=== PATIENT | female | born 1995 | race Caucasian/White ===

== ENCOUNTER 2016-12-01 21:16 | Emergency (ER) | payer OTHER ==
[~2016-12-01] VITALS: Ht 167.6 cm; Wt 75.2 kg
[2016-12-01 21:55] LABS: HEMATOCRIT 33.4 % (36.0-46.0); MCH 28.4 PG (29.0-34.0); MCHC 33.5 G/DL (30.0-36.0); MCV 84.8 FL (83-99); MEAN PLAT.VOLUME 10.4 uM^3 (9.5-12.4); PLATELET COUNT 301 K/uL (156-360); RBC DIS.WIDTH-CV 13.2 % (11.8-14.6); RBC DIS.WIDTH-SD 40.9 % (39-53); RED BLOOD COUNT 3.94 M/uL (3.80-5.20); WHITE BLOOD COUNT 13.3 K/uL (4.1-10.2)
[2016-12-01 22:02] LABS: CHLORIDE 104 mEq/L (99-109); POTASSIUM 3.2 mEq/L (3.7-5.4); SODIUM 137 mEq/L (136-147)
[2016-12-01 22:04] LABS: GLUCOSE 78 mg/dL (70-99)
[2016-12-01 22:06] LABS: ANION GAP 16 MEQ/L (2-14); TOTAL BILIRUBIN 0.3 mg/dL (0.0-1.0)
[2016-12-01 22:08] LABS: ALKALINE PHOSPHATASE 76 IU/L (3-129); GFR ESTIMATE (CALCULATED) > 59 mL/min/
[2016-12-01 22:09] LABS: UREA NITROGEN (BUN) 5 mg/dL (9-23)
[2016-12-02 00:59] LABS: ADD MIUA? YES; BILIRUBIN NEGATIVE; BLOOD SMALL; COLOR YELLOW ((YELLOW)); GLUCOSE (STRIP) NEGATIVE; KETONES 20; LEUKOCYTES MODERATE; NITRITE NEGATIVE; PROTEIN (STRIP) NEGATIVE; UROBILINOGEN 0.2 MG/DL (0.2-1.0)
[2016-12-02 01:44] LABS: BACTERIA RARE /HPF; EPITHELIAL CELLS 1+ /HPF; MUCUS TRACE /LPF; RED BLOOD CELLS 0-5 /HPF (0-5); UCUL ADDED? YES
[2016-12-02] MEDS ORDERED: MACROBID100 MG PO (02:08)
[2016-12-02 02:20] VITALS: BP 108/60
== END 2016-12-02 02:24 | disposition home or self-care (01) ==
LOC: EME 21:16
PROVIDERS: Physician Assistant
DX: O26.892 Other specified pregnancy related conditions, second trimester (principal); R07.9 Chest pain, unspecified; R06.00 Dyspnea, unspecified; O23.42 Unspecified infection of urinary tract in pregnancy, second trimester; Z3A.28 28 weeks gestation of pregnancy
CPT/HCPCS: 71010; 80053; 81003; 85027; 85379; 87086; 93005; 93970; 99281; 99284

== ENCOUNTER 2017-02-25 16:15 | Outpatient (CLI) | payer OTHER ==
[~2017-02-25 16:15] MED LIST: MACROBID100 MG PO
[2017-02-25 16:30] VITALS: BP 121/74
== END 2017-02-25 17:15 | disposition home or self-care (01) ==
LOC: LDRP-OP → 2WEST 16:17 → LDRP-OP 03-30 13:13
DX: O36.8130 Decreased fetal movements, third trimester, not applicable or unspecified (principal); Z3A.39 39 weeks gestation of pregnancy
CPT/HCPCS: 59025; G0378

== ENCOUNTER 2017-03-07 22:11 | Inpatient (IN) | payer OTHER ==
[~2017-03-07] VITALS: Ht 167.6 cm; Wt 87.0 kg
[2017-03-07 22:30] VITALS: BP 112/55
[2017-03-07 23:07] LABS: BASOPHIL (%) 0.1 % (0-1); EOSINOPHIL (%) 0.1 % (0-5); HEMATOCRIT 36.6 % (36.0-46.0); IMMATURE GRANULOCYTE (%) 1.2 % (0.0-0.7); LYMPHOCYTE (%) 4.4 % (15-42); LYMPHOCYTE COUNT 0.6 K/uL (1.0-2.8); MCH 27.3 PG (29.0-34.0); MCHC 32.8 G/DL (30.0-36.0); MCV 83.2 FL (83-99); MONOCYTE (%) 3.9 % (3-12); MONOCYTE COUNT 0.6 K/uL (0-0.8); NEUTROPHIL (%) 90.3 % (45-76); NEUTROPHIL COUNT 13.3 K/uL (1.8-6.4); PLATELET COUNT 222 K/uL (156-360); RBC DIS.WIDTH-CV 18.8 % (11.8-14.6); RBC DIS.WIDTH-SD 56.7 % (39-53); WHITE BLOOD COUNT 14.7 K/uL (4.1-10.2)
[2017-03-08] VITALS (14 sets, daily range): BP systolic 99–127; BP diastolic 56–77
[2017-03-08 06:07] LABS: BASE EXCESS -12.4 mEq/L (-3 to +3); BICARBONATE 13.8 mEq/L (22-26); CARBOXY HGB 1.6 % (0-5); METHEMOGLOBIN 1.3 % (0-1.5); PCO2 33 mm Hg (35-45); PO2 31 mm Hg (80-100); pH 7.23 (7.35-7.45)
[2017-03-08 06:08] LABS: COMMENTS - BLOOD GASES COLL BY L/D; SITE CORD BLOOD / VEN
[2017-03-09 06:25] LABS: BASOPHIL (%) 0.2 % (0-1); EOSINOPHIL (%) 0.1 % (0-5); HEMATOCRIT 29.2 % (36.0-46.0); IMMATURE GRANULOCYTE (%) 1.3 % (0.0-0.7); LYMPHOCYTE (%) 10.4 % (15-42); LYMPHOCYTE COUNT 2.2 K/uL (1.0-2.8); MCH 27.6 PG (29.0-34.0); MCHC 32.2 G/DL (30.0-36.0); MCV 85.9 FL (83-99); MONOCYTE (%) 8.2 % (3-12); MONOCYTE COUNT 1.7 K/uL (0-0.8); NEUTROPHIL (%) 79.8 % (45-76); NEUTROPHIL COUNT 16.7 K/uL (1.8-6.4); PLATELET COUNT 238 K/uL (156-360); RBC DIS.WIDTH-CV 19.6 % (11.8-14.6); WHITE BLOOD COUNT 20.9 K/uL (4.1-10.2)
[2017-03-09 06:45] LABS: HEMOGLOBIN 9.4 G/DL (11.9-15.5)
[2017-03-09] MEDS ORDERED: FERROCITE324 MG PO (10:48)
== END 2017-03-09 12:38 | disposition home or self-care (01) | DRG 775 ==
LOC: LDRP-OP 22:11 → 2WEST 22:13 → LDRP-OP 03-30 17:25
PROVIDERS: Advanced Practice Midwife; Obstetrics & Gynecology
DX: O71.4 Obstetric high vaginal laceration alone (principal); O63.1 Prolonged second stage (of labor); O69.1XX0 Labor and delivery complicated by cord around neck, with compression, not applicable or unspecified; O77.0 Labor and delivery complicated by meconium in amniotic fluid; O99.824 Streptococcus B carrier state complicating childbirth; O48.0 Post-term pregnancy; O99.02 Anemia complicating childbirth; D62 Acute posthemorrhagic anemia; O99.344 Other mental disorders complicating childbirth; F41.9 Anxiety disorder, unspecified; Z3A.41 41 weeks gestation of pregnancy; Z37.0 Single live birth
CPT/HCPCS: 36600; 82803; 85025; 88307; G0378; J0595; J2540; J7120